=== PATIENT | male | born 1960 | race Caucasian/White ===

== ENCOUNTER 2017-01-19 09:58 | Emergency (ER) | payer SELFPAY ==
[2017-01-19 10:13] VITALS: BMI 24.3
[2017-01-19] MEDS ORDERED: NS 1000 ML 1,000 ML IV ONE (10:42)
[2017-01-19] MEDS ORDERED: ZOFRAN INJ 4 MG VIAL IVP ONE (10:43)
[2017-01-19] MEDS ORDERED: REGLAN INJ 10 MG VIAL IVP STA (10:43)
--- NOTE | 2017-01-19 10:49 | DR.GENAD ---
HPI - PCP Primary Care Physician: shellie - Complaint/Symptoms Chief Complaint Doctors Comments: Patient complains of nausea and vomiting for the past two days getting worst today with body aches and lower abdominal pain with cold, cough, SOB and dysuria. Patient states he is a patient of Dr. Montano and is taking Hydrocodone 10mg; and a high blood pressure medicine with a muscle spasm pill that he takes at times. States he had a normal bowel movement today. Chief Complaint:: 'throwing up for two days" - Nurses notes reviewed Nurses Notes Review: Yes - Source History Provided: Patient - Mode of Arrival Mode of Arrival: Ambulatory - Timing Onset of Chief Complaint: 01/18/17 Came on: Gradually - Duration Duration: Constant How lon Duration: Days - Location Location: lower abdominal pain - Severity Severity: Moderate - Modifying Factors Worsens:: nothing Improves:: nothing PMH - PMH Past Medical History: Yes Past Medical History: Hypertension Past Surgical History: No - Family History History of Family Medical Conditions: Yes Family Medical History: SD - Social History Does patient currently use any type of tobacco product: Yes Have you used tobacco products in the last 12 months: Yes Type of Tobacco Use: Cigarettes How many years tobacco product used: 1 Does any household member use tobacco: No Alcohol Use: None Do you use any recreational Drugs:: No Lives With: Family Lives Where: Home - infectious screening In the last 2 months have you had wt loss of >10#?: NO Have you had fever, night sweats or hemotysis?: No Have you traveled outside the country in the last 6 months?: No Isolation: Standard ROS - Review of Systems Constitutional: No Symptoms Reported, Loss of Appetite Eyes: No Symptoms Reported. negative: See HPI, Eye Pain, Blurred Vision, Tearing, Discharge, Photophobia, Diplopia, Other ENTM: No Symptoms Reported Respiratoy: No Symptoms Reported, Short of Breath. negative: See HPI, Productive Cough, Non-Productive Cough, Moist Cough, Dry Cough, Hacking Cough, Barking Cough, Brassy Cough, Orthopnea, Stridor, Wheezing, Hemoptysis, Other Cardiovascular: No Symptoms Reported. negative: See HPI, Chest Pain, Edema, Palpitations, Syncope, Cyanosis, Skin Mottling, Other Gastrointestinal/Abdominal: No Symptoms Reported, Abdominal Pain, Nausea, Vomiting Genitourinary: No Symptoms Reported. negative: See HPI, Discharge, Dysuria, Frequency, Hematuria, Pain, Bleeding, Other Neurological: No Symptoms Reported, Anxiety, Emotional Problems Musculoskeletal: No Symptoms Reported Integumentary: No Symptoms Reported Hematologic/Lymphatic: No Symptoms Reported. negative: See HPI, Anemia, Blood Clots, Easy Bleeding, Easy Bruising, Swollen Glands, Lymphadenopathy, Other Endocrine: No Symptoms Reported Psychiatric: No Symptoms Reported PE - Vital Signs Vitals: Temperature 98 F Pulse Rate 68 Respiratory Rate 18 Blood Pressure [Left Arm] 159/99 Blood Pressure 184/108 O2 Sat by Pulse Oximetry 100 - General Limitations: No Limitations General Appearance: Alert, Anxious, In Distress (mild) - Head Head Exam: Normal Inspection, Atraumatic, Normocephalic - Eyes Eye exam: Normal Appearance, PERRL, EOMI. negative: Scleral Icterus, Conjunctival Injection, Nystagmus, Miosis, Mydrasis, Periorbital Swelling, Periorbital Tenderness, Other - ENT ENT Exam: Normal Exam, Normal Oropharynx, Normal External Ear Exam, Mucous Membranes Moist, TM's Normal Bilaterally External Ear Exam: Normal External Inspection TM/Canal Exam: Bilateral Normal Nose Exam: Normal Nose Exam Mouth Exam: Normal Inspection. negative: Drooling, Trismus, Lip Swelling, Tongue Elevation, Tongue Swelling, Laceration, Other Throat Exam: Normal Inspection. negative: Tonsillar Erythema, Tonsillomegaly, Tonsillar Exudate, R Peritonsillar Mass, L Peritonsillar Mass, Muffled Voice, Other - Neck Neck Exam: Normal Inspection, Full ROM, Trachea Midline. negative: Tenderness, Meningismus, Lymphadenopathy, Thyromegaly, Other - Chest Chest Inspection: Normal Inspection, Symmetric Chest Wall Rise. negative: Tenderness, Rash, Abscess, Other - Respiratory Respiratory Exam: Normal Lung Sounds Bilat Respiratory Exam: Bilateral Clear to Auscultation - Cardiovascular Cardiovascular Exam: Regular Rate, Normal Rhythm, Normal Heart Sounds. negative : Bradycardia, Tachycardia, Irregular Rhythm, Systolic Murmur, Diastolic Murmur , Rubs, Gallop, Clicks, JVD, +S1, +S2, +S3, +S4, Other - Abdominal Exam Abdominal Exam: Normal Inspection, Normal Bowel Sounds, Soft. negative: Distention, Tenderness, Guarding, Rebound, Rigidity, Dimnished Bowel Sounds, Hyperactive Bowel Sounds, Hypoactive Bowel Sounds, Organomegaly, Trauma, Incision, Ascites, Mass, Bruit, Pulsatile Mass, Hernia, Other Abdominal Tenderness: negative: RUQ, RLQ, LUQ, LLQ, Epigastrium, Suprapubic, Diffuse, Mild, Moderate, Severe, Other - Extremities Extremities Exam: Normal Inspection, Full ROM, Normal Capillary Refill. negative: Tenderness, Edema, Joint Swelling, Calf Tenderness, Other - Back Back Exam: Normal Inspection, Full ROM - Neurologic Neurological Exam: Alert, Oriented X3, CN II-XII Intact, Reflexes Normal. negative: Normal Gait (gait not tested) - Psychiatric Psychiatric Exam: Normal Affect, Normal Mood - Skin Skin Exam: Warm, Dry, Intact, Normal Color ROR - Labs Reviewed Laboratory Results Reviewed?: Yes (all labs and x-ray results reviewed and discussed with patient) Result Diagrams: 01/19/17 11:08 01/19/17 11:08 Laboratory: WBC 11.0 X10^3/uL (3.6-10.0) H 01/19/17 11:08 RBC 5.79 X10^6/uL (4.7-6.0) 01/19/17 11:08 Hgb 18.1 g/dL (13.5-18.0) H 01/19/17 11:08 Hct 52.3 % (42.0-54.0) 01/19/17 11:08 MCV 90.2 fL (80.0-100.0) 01/19/17 11:08 MCH 31.2 pg (27.0-34.0) 01/19/17 11:08 MCHC 34.6 g/dL (33.0-35.0) 01/19/17 11:08 RDW 12.8 % (11.6-16.5) 01/19/17 11:08 Plt Count 251 X10^3/uL (150.0-450.0) 01/19/17 11:08 MPV 7.4 fL (7.4-11.0) 01/19/17 11:08 Neut % 84.1 % (42.0-75.0) H 01/19/17 11:08 Lymph % 9.2 % (21.0-51.0) L 01/19/17 11:08 Prentiss % 5.2 % (0.0-13.0) 01/19/17 11:08 Eos % 1.1 % (0.9-2.9) 01/19/17 11:08 Baso % 0.4 % (0.2-1.0) 01/19/17 11:08 Neut # 9.3 x10^3/uL (2.2-4.8) H 01/19/17 11:08 Lymph # 1.0 X10^3/uL (1.3-2.9) L 01/19/17 11:08 Prentiss # 0.6 x10^3/uL (0.3-0.8) 01/19/17 11:08 Eos # 0.1 x10^3/uL (0.0-0.2) 01/19/17 11:08 Baso # 0.0 X10^3/uL (0.0-0.1) 01/19/17 11:08 Absolute Nucleated RBC 0.0 /100WBC 01/19/17 11:08 Sodium 139 mmol/L (136-145) 01/19/17 11:08 Corrected Sodium TNP 01/19/17 11:08 Potassium 4.2 mmol/L (3.5-5.1) 01/19/17 11:08 Chloride 101 mmol/L (98-107) 01/19/17 11:08 Carbon Dioxide 26.2 mmol/L (21-32) 01/19/17 11:08 BUN 14 mg/dL (7-18) 01/19/17 11:08 Creatinine 1.31 mg/dL (0.70-1.30) H 01/19/17 11:08 Est GFR (MDRD) Af Amer > 60 (>60) 01/19/17 11:08 Est GFR (MDRD) Non-Af > 60 (>60) 01/19/17 11:08 Glucose 98 mg/dL (65-99) 01/19/17 11:08 Calcium 10.1 mg/dL (8.5-10.1) 01/19/17 11:08 Corrected Calcium TNP 01/19/17 11:08 Total Bilirubin 0.70 mg/dL (0.2-1.0) 01/19/17 11:08 AST 22 Units/L (15-37) 01/19/17 11:08 ALT 27 Units/L (12-78) 01/19/17 11:08 Alkaline Phosphatase 132 Units/L (46-116) H 01/19/17 11:08 Total Protein 8.2 g/dL (6.4-8.2) 01/19/17 11:08 Albumin 4.5 g/dL (3.4-5.0) 01/19/17 11:08 Globulin 3.7 g/dL (2.5-4.5) 01/19/17 11:08 Albumin/Globulin Ratio 1.2 Ratio (1.1-2.1) 01/19/17 11:08 Amylase 117 Units/L (25-115) H 01/19/17 11:08 Lipase 186 Units/L (73-393) 01/19/17 11:08 - Diagnosis Discharge Problem: persistent nausea and vomiting, Abdominal pain, Essential hypertension - Discharge Plan Disposition: 07 AGAINST MEDICAL ADVICE Condition: Stable - Follow ups/Referrals Follow ups/Referrals: [place] MONTANO [Primary Care Provider] - 3 days - Instructions
[2017-01-19 11:21] LABS: BASOPHILS % (AUTO) 0.4 % (0.2-1.0); EOSINOPHILS # (AUTO) 0.1 x10^3/uL (0.0-0.2); EOSINOPHILS % (AUTO) 1.1 % (0.9-2.9); HEMATOCRIT 52.3 % (42.0-54.0); HEMOGLOBIN 18.1 g/dL (13.5-18.0); LYMPHOCYTES % (AUTO) 9.2 % (21.0-51.0); MEAN CORPUSCULAR HEMOGLOBIN 31.2 pg (27.0-34.0); MEAN CORPUSCULAR HGB CONC 34.6 g/dL (33.0-35.0); MEAN CORPUSCULAR VOLUME 90.2 fL (80.0-100.0); MEAN PLATELET VOLUME 7.4 fL (7.4-11.0); MONOCYTES # (AUTO) 0.6 x10^3/uL (0.3-0.8); MONOCYTES % (AUTO) 5.2 % (0.0-13.0); NEUTROPHILS # (AUTO) 9.3 x10^3/uL (2.2-4.8); NEUTROPHILS % (AUTO) 84.1 % (42.0-75.0); PLATELET COUNT 251 X10^3/uL (150.0-450.0); RED BLOOD COUNT 5.79 X10^6/uL (4.7-6.0); RED CELL DISTRIBUTION WIDTH 12.8 % (11.6-16.5)
[2017-01-19 11:27] LABS: ALANINE AMINOTRANSFERASE 27 Units/L (12-78); ALBUMIN 4.5 g/dL (3.4-5.0); ALKALINE PHOSPHATASE 132 Units/L (46-116); AMYLASE 117 Units/L (25-115); ASPARTATE AMINO TRANSFERASE 22 Units/L (15-37); BLOOD UREA NITROGEN 14 mg/dL (7-18); CALCIUM 10.1 mg/dL (8.5-10.1); CARBON DIOXIDE 26.2 mmol/L (21-32); CHLORIDE 101 mmol/L (98-107); CREATININE 1.31 mg/dL (0.70-1.30); LIPASE 186 Units/L (73-393); SODIUM 139 mmol/L (136-145); TOTAL PROTEIN 8.2 g/dL (6.4-8.2); eGFR BLACK RACES > 60 (>60); eGFR NON BLACK RACES > 60 (>60)
[2017-01-19 11:33] VITALS: BP 184/108
[2017-01-19] MEDS ORDERED: PHENERGAN INJ 25 MG IM ONE (11:36)
--- NOTE | 2017-01-19 12:20 | CT ---
HISTORY: Subacute abdominal pain with nausea and vomiting Study: CT abdomen and pelvis without contrast Comparison: None Technique: Multiple axial, coronal, and sagittal CT images of the abdomen and pelvis were reviewed wi thout contrast. AEC was utilized. Findings: There is rounded fluid filling the right inguinal canal which could reflect fluid or perhaps an undes cended testicle. No herniated bowel loops are seen. Clinical correlation recommended. If further imag ing evaluation is warranted, ultrasound would be recommended. The lung bases are clear. There are deg enerative changes within the spine and hips. No destructive osseous lesions are seen. The noncontrast appearance of the solid organs is unremarkable other than an incidental 9 mm nonobstructive left felicity al caliceal stone. The appendix is normal. IMPRESSION: No definite acute finding within the abdomen or pelvis. Nonobstructive left nephrolithiasis. Soft tissue density versus fluid filling the right inguinal canal as above. Reported By:
== END 2017-01-19 12:00 | disposition left against medical advice (07) ==
LOC: ER 10:18
DX: R11.2 Nausea with vomiting, unspecified (principal); R10.84 Generalized abdominal pain; I10 Essential (primary) hypertension
CPT/HCPCS: 36415; 74176; 80053; 82150; 83690; 85025; 96365; 96374; 96375; 99283; A4216; A4222

== ENCOUNTER 2017-02-02 11:56 | Emergency (ER) | payer MEDICAID ==
--- NOTE | 2017-02-02 12:06 | DR.GENAD ---
HPI - Complaint/Symptoms Chief Complaint Doctors Comments: patient presents with complaint of stomach pain, nausea and vomiting since this mornig. He denies fever or diarrhea. He was diagnosed with a 9mm left nonobstructive nephrolithiasis on 01/19/17. He admits to intermittent vomiting since last seen. His CT scan also revealed DJD changes within the spine and hips. PMH - PMH Past Medical History: Hypertension Past Surgical History: No - Family History Family Medical History: ID - Social History Do you use any recreational Drugs:: No ROS - Review of Systems Constitutional: negative: Diaphoresis Eyes: No Symptoms Reported ENTM: No Symptoms Reported Respiratoy: No Symptoms Reported Cardiovascular: No Symptoms Reported Gastrointestinal/Abdominal: No Symptoms Reported Genitourinary: No Symptoms Reported Neurological: No Symptoms Reported Musculoskeletal: No Symptoms Reported Integumentary: No Symptoms Reported Hematologic/Lymphatic: No Symptoms Reported Endocrine: No Symptoms Reported Psychiatric: No Symptoms Reported All Other Systems: Reviewed and Negative PE - Vital Signs Vitals: Temperature 98.3 F Pulse Rate 105 Respiratory Rate 18 Blood Pressure [Left Arm] 159/99 Blood Pressure 213/117 O2 Sat by Pulse Oximetry 100 - General Limitations: No Limitations General Appearance: Alert, In No Apparent Distress - Head Head Exam: Normal Inspection, Atraumatic - Eyes Eye exam: Normal Appearance, PERRL, EOMI - ENT ENT Exam: Normal Exam External Ear Exam: Normal External Inspection TM/Canal Exam: Bilateral Normal Nose Exam: Normal Nose Exam Mouth Exam: Normal Inspection Throat Exam: Normal Inspection - Neck Neck Exam: Normal Inspection - Chest Chest Inspection: Normal Inspection, Symmetric Chest Wall Rise - Respiratory Respiratory Exam: Normal Lung Sounds Bilat Respiratory Exam: Bilateral Clear to Auscultation - Cardiovascular Cardiovascular Exam: Regular Rate, Normal Rhythm - Abdominal Exam Abdominal Exam: Normal Inspection, Normal Bowel Sounds Abdominal Tenderness: negative: RUQ, RLQ, LUQ, LLQ, Epigastrium, Suprapubic, Diffuse, Mild, Moderate, Severe, Other - Extremities Extremities Exam: Normal Inspection, Full ROM - Back Back Exam: Normal Inspection - Neurologic Neurological Exam: Alert, Oriented X3, CN II-XII Intact - Psychiatric Psychiatric Exam: Normal Affect - Skin Skin Exam: Warm, Dry, Intact Course - Reevaluation 1st: Improved - Education/Counseling Educated On: Treatment, Diagnosis, Prognosis, Needs for Follow Up ROR - Labs Reviewed Result Diagrams: 02/02/17 12:20 02/02/17 12:20 Laboratory: WBC 9.0 X10^3/uL (3.6-10.0) 02/02/17 12:20 RBC 5.95 X10^6/uL (4.7-6.0) 02/02/17 12:20 Hgb 18.6 g/dL (13.5-18.0) H 02/02/17 12:20 Hct 53.7 % (42.0-54.0) 02/02/17 12:20 MCV 90.2 fL (80.0-100.0) 02/02/17 12:20 MCH 31.3 pg (27.0-34.0) 02/02/17 12:20 MCHC 34.7 g/dL (33.0-35.0) 02/02/17 12:20 RDW 13.2 % (11.6-16.5) 02/02/17 12:20 Plt Count 275 X10^3/uL (150.0-450.0) 02/02/17 12:20 MPV 7.8 fL (7.4-11.0) 02/02/17 12:20 Neut % 73.4 % (42.0-75.0) 02/02/17 12:20 Lymph % 16.3 % (21.0-51.0) L 02/02/17 12:20 [place] % 8.9 % (0.0-13.0) 02/02/17 12:20 Eos % 0.7 % (0.9-2.9) L 02/02/17 12:20 Baso % 0.7 % (0.2-1.0) 02/02/17 12:20 Neut # 6.6 x10^3/uL (2.2-4.8) H 02/02/17 12:20 Lymph # 1.5 X10^3/uL (1.3-2.9) 02/02/17 12:20 [place] # 0.8 x10^3/uL (0.3-0.8) 02/02/17 12:20 Eos # 0.1 x10^3/uL (0.0-0.2) 02/02/17 12:20 Baso # 0.1 X10^3/uL (0.0-0.1) 02/02/17 12:20 Absolute Nucleated RBC 0.0 /100WBC 02/02/17 12:20 Sodium 140 mmol/L (136-145) 02/02/17 12:20 Corrected Sodium 140 mmol/L (136-145) 02/02/17 12:20 Potassium 3.4 mmol/L (3.5-5.1) L 02/02/17 12:20 Chloride 99 mmol/L (98-107) 02/02/17 12:20 Carbon Dioxide 27.8 mmol/L (21-32) 02/02/17 12:20 BUN 22 mg/dL (7-18) H 02/02/17 12:20 Creatinine 1.60 mg/dL (0.70-1.30) H 02/02/17 12:20 Est GFR (MDRD) Af Amer 58 (>60) L 02/02/17 12:20 Est GFR (MDRD) Non-Af 48 (>60) L 02/02/17 12:20 Glucose 117 mg/dL (65-99) H 02/02/17 12:20 Calcium 10.3 mg/dL (8.5-10.1) H 02/02/17 12:20 - XRAY XRAY Interpreted by: Radiologist (See results of 01/19/17) - Diagnosis Discharge Problem: Nonobstructive Nephrolithiasis Osteoarthritis Qualifiers: Osteoarthritis location: unspecified site Osteoarthritis type: unspecified Qualified Code(s): M19.90 - Unspecified osteoarthritis, unspecified site - Discharge Plan Condition: Stable - Follow ups/Referrals Follow ups/Referrals: NFD,None [Primary Care Provider] - 3 days - Instructions
[2017-02-02] MEDS ORDERED: PHENERGAN INJ 25 MG IV ONE (12:12)
[2017-02-02 12:17] VITALS: BP 213/117; BMI 24.3
[2017-02-02] MEDS ORDERED: PHENERGAN INJ 25 MG ONE (12:18)
[2017-02-02] MEDS ORDERED: NS 1000 ML 1,000 ML ONE (12:20)
[2017-02-02 12:33] LABS: BASOPHILS # (AUTO) 0.1 X10^3/uL (0.0-0.1); BASOPHILS % (AUTO) 0.7 % (0.2-1.0); EOSINOPHILS # (AUTO) 0.1 x10^3/uL (0.0-0.2); EOSINOPHILS % (AUTO) 0.7 % (0.9-2.9); HEMATOCRIT 53.7 % (42.0-54.0); HEMOGLOBIN 18.6 g/dL (13.5-18.0); LYMPHOCYTES # (AUTO) 1.5 X10^3/uL (1.3-2.9); LYMPHOCYTES % (AUTO) 16.3 % (21.0-51.0); MEAN CORPUSCULAR HEMOGLOBIN 31.3 pg (27.0-34.0); MEAN CORPUSCULAR HGB CONC 34.7 g/dL (33.0-35.0); MEAN CORPUSCULAR VOLUME 90.2 fL (80.0-100.0); MEAN PLATELET VOLUME 7.8 fL (7.4-11.0); MONOCYTES # (AUTO) 0.8 x10^3/uL (0.3-0.8); MONOCYTES % (AUTO) 8.9 % (0.0-13.0); NEUTROPHILS # (AUTO) 6.6 x10^3/uL (2.2-4.8); NEUTROPHILS % (AUTO) 73.4 % (42.0-75.0); PLATELET COUNT 275 X10^3/uL (150.0-450.0); RED BLOOD COUNT 5.95 X10^6/uL (4.7-6.0); RED CELL DISTRIBUTION WIDTH 13.2 % (11.6-16.5)
[2017-02-02] MEDS ORDERED: TORADOL 30 MG VIAL ONE (12:51)
[2017-02-02] MEDS ORDERED: TORADOL 30 MG VIAL IVP ONE (12:51)
[2017-02-02] MEDS ORDERED: DEMEROL INJ IVP ONE (12:52)
[2017-02-02 12:53] LABS: BLOOD UREA NITROGEN 22 mg/dL (7-18); CALCIUM 10.3 mg/dL (8.5-10.1); CARBON DIOXIDE 27.8 mmol/L (21-32); CHLORIDE 99 mmol/L (98-107); COR NA(FOR HYPERGLY) 140 mmol/L (136-145); SODIUM 140 mmol/L (136-145); eGFR BLACK RACES 58 (>60); eGFR NON BLACK RACES 48 (>60)
[2017-02-02] MEDS ORDERED: ZOFRAN INJ 4 MG VIAL IVP ONE (12:58)
[2017-02-02] MEDS ORDERED: DEMEROL INJ ONE (13:00)
[2017-02-02] MEDS ORDERED: ZOFRAN INJ 4 MG VIAL ONE (13:00)
[2017-02-02] MEDS ORDERED: NS 1000 ML 1,000 ML IV SCH (13:00)
[2017-02-02 13:16] LABS: ALANINE AMINOTRANSFERASE 43 Units/L (12-78); ALBUMIN 4.8 g/dL (3.4-5.0); ALKALINE PHOSPHATASE 126 Units/L (46-116); ASPARTATE AMINO TRANSFERASE 25 Units/L (15-37); TOTAL PROTEIN 8.5 g/dL (6.4-8.2)
== END 2017-02-02 13:30 | disposition home or self-care (01) ==
LOC: ER 11:56
DX: N20.0 Calculus of kidney (principal); M19.90 Unspecified osteoarthritis, unspecified site
CPT/HCPCS: 36415; 80053; 85025; 86140; 96365; 96374; 96375; 99283; J1885; J2175; J2405; J2550

== ENCOUNTER 2017-02-03 08:54 | Emergency (ER) | payer MEDICAID ==
[2017-02-03 08:58] VITALS: BMI 24.4
[2017-02-03 09:00] VITALS: BP 203/125
--- NOTE | 2017-02-03 09:03 | DR.GENAD ---
HPI - PCP Primary Care Physician: shellie SEBASTIAN Comment HPI Comment: HISTORY BELOW - Complaint/Symptoms Chief Complaint Doctors Comments: ABDOMINAL AND LOWER BACK PAIN. SEEN IN ED YESTERDAY FOR SAME. NOT BETTER. 9MM LEFT CALICEAL CALCULI SEEN 01/19/2017. NO FEVER. N/V PRESENT. Chief Complaint:: pt came to our er yesterday with kidney stone and went home and woke up this morning hurting again. - Nurses notes reviewed Nurses Notes Review: Yes - Source History Provided: Patient - Mode of Arrival Mode of Arrival: Ambulatory - Timing Onset of Chief Complaint: 02/03/17 Came on: Suddenly - Duration Duration: Constant Duration: Days - Severity Severity: Moderate PMH - PMH Past Medical History: Yes Past Medical History: Hypertension Past Surgical History: No Surgical History: Other - Family History History of Family Medical Conditions: Yes Family Medical History: SD - Social History Does patient currently use any type of tobacco product: Yes Have you used tobacco products in the last 12 months: Yes Type of Tobacco Use: Cigarettes How many years tobacco product used: 2 Does any household member use tobacco: No Alcohol Use: None Do you use any recreational Drugs:: No Lives With: Family Lives Where: Home - infectious screening In the last 2 months have you had wt loss of >10#?: NO Have you had fever, night sweats or hemotysis?: No Have you traveled outside the country in the last 6 months?: No Isolation: Standard ROS - Review of Systems Constitutional: No Symptoms Reported Eyes: No Symptoms Reported ENTM: No Symptoms Reported Respiratoy: No Symptoms Reported Cardiovascular: No Symptoms Reported Gastrointestinal/Abdominal: No Symptoms Reported Genitourinary: No Symptoms Reported Neurological: No Symptoms Reported Musculoskeletal: No Symptoms Reported Integumentary: No Symptoms Reported Hematologic/Lymphatic: No Symptoms Reported Endocrine: No Symptoms Reported All Other Systems: Reviewed and Negative PE - Vital Signs Vitals: Temperature 98.7 F Pulse Rate 110 Respiratory Rate 18 Blood Pressure [Left Arm] 159/99 Blood Pressure 203/125 O2 Sat by Pulse Oximetry 100 - General Limitations: No Limitations General Appearance: Alert - Head Head Exam: Normal Inspection - Eyes Eye exam: Normal Appearance - ENT ENT Exam: Normal External Ear Exam External Ear Exam: Normal External Inspection TM/Canal Exam: Bilateral Normal Nose Exam: Normal Nose Exam Throat Exam: Normal Inspection - Neck Neck Exam: Normal Inspection - Chest Chest Inspection: Symmetric Chest Wall Rise - Respiratory Respiratory Exam: Normal Lung Sounds Bilat Respiratory Exam: Bilateral Clear to Auscultation - Cardiovascular Cardiovascular Exam: Regular Rate, Normal Rhythm, Normal Heart Sounds - Abdominal Exam Abdominal Exam: Normal Bowel Sounds, Soft, Tenderness Abdominal Tenderness: Diffuse, Moderate - Extremities Extremities Exam: Normal Inspection - Back Back Exam: (L) CVA Tenderness - Neurologic Neurological Exam: Alert, Oriented X3 - Psychiatric Psychiatric Exam: Normal Affect, Normal Mood - Skin Skin Exam: Normal Color MDM - Differential Diagnosis Differential Diagnosis: ABDOMINAL PAIN, KIDNEY STONE, UTI Course - Treatment Treatment: SEE ORDERS. IV FLUIDS NS AND IV TORADOL, ZOFRAN, PHENERGAN AND DEMOROL IN ED. - Consultation Consultation Comments: DISCUSS PATIENT WITH DR. VELARDE, [facility]. HE WANT PATIENT SENT TO THE ED AND HE WILL SEE PATIENT. - Education/Counseling Education/Counseling: Patient ROR - Labs Reviewed Laboratory Results Reviewed?: Yes Result Diagrams: 02/03/17 09:30 02/03/17 09:30 Laboratory: WBC 9.0 X10^3/uL (3.6-10.0) 02/03/17 09:30 RBC 5.54 X10^6/uL (4.7-6.0) 02/03/17 09:30 Hgb 17.3 g/dL (13.5-18.0) 02/03/17 09:30 Hct 50.1 % (42.0-54.0) 02/03/17 09:30 MCV 90.3 fL (80.0-100.0) 02/03/17 09:30 MCH 31.3 pg (27.0-34.0) 02/03/17 09:30 MCHC 34.6 g/dL (33.0-35.0) 02/03/17 09:30 RDW 13.1 % (11.6-16.5) 02/03/17 09:30 Plt Count 224 X10^3/uL (150.0-450.0) 02/03/17 09:30 MPV 7.8 fL (7.4-11.0) 02/03/17 09:30 Neut % 81.0 % (42.0-75.0) H 02/03/17 09:30 Lymph % 11.7 % (21.0-51.0) L 02/03/17 09:30 [place] % 6.5 % (0.0-13.0) 02/03/17 09:30 Eos % 0.5 % (0.9-2.9) L 02/03/17 09:30 Baso % 0.3 % (0.2-1.0) 02/03/17 09:30 Neut # 7.3 x10^3/uL (2.2-4.8) H 02/03/17 09:30 Lymph # 1.1 X10^3/uL (1.3-2.9) L 02/03/17 09:30 [place] # 0.6 x10^3/uL (0.3-0.8) 02/03/17 09:30 Eos # 0.0 x10^3/uL (0.0-0.2) 02/03/17 09:30 Baso # 0.0 X10^3/uL (0.0-0.1) 02/03/17 09:30 Absolute Nucleated RBC 0.1 /100WBC 02/03/17 09:30 Sodium 138 mmol/L (136-145) 02/03/17 09:30 Corrected Sodium TNP 02/03/17 09:30 Potassium 3.6 mmol/L (3.5-5.1) 02/03/17 09:30 Chloride 102 mmol/L (98-107) 02/03/17 09:30 Carbon Dioxide 25.2 mmol/L (21-32) 02/03/17 09:30 BUN 24 mg/dL (7-18) H 02/03/17 09:30 Creatinine 1.54 mg/dL (0.70-1.30) H 02/03/17 09:30 Est GFR (MDRD) Af Amer 60 (>60) 02/03/17 09:30 Est GFR (MDRD) Non-Af 50 (>60) L 02/03/17 09:30 Glucose 104 mg/dL (65-99) H 02/03/17 09:30 Calcium 9.8 mg/dL (8.5-10.1) 02/03/17 09:30 Corrected Calcium TNP 02/03/17 09:30 Total Bilirubin 1.00 mg/dL (0.2-1.0) 02/03/17 09:30 AST 22 Units/L (15-37) 02/03/17 09:30 ALT 38 Units/L (12-78) 02/03/17 09:30 Alkaline Phosphatase 111 Units/L (46-116) 02/03/17 09:30 Total Protein 7.7 g/dL (6.4-8.2) 02/03/17 09:30 Albumin 4.3 g/dL (3.4-5.0) 02/03/17 09:30 Globulin 3.4 g/dL (2.5-4.5) 02/03/17 09:30 Albumin/Globulin Ratio 1.3 Ratio (1.1-2.1) 02/03/17 09:30 Amylase 81 Units/L (25-115) 02/03/17 09:30 Lipase 190 Units/L (73-393) 02/03/17 09:30 Specimen Type Clean catch urine 02/03/17 09:30 Urine Color Bloody (YELLOW) 02/03/17 09:30 Urine Appearance Cloudy (CLEAR) 02/03/17 09:30 Urine pH 5.0 (5.0 - 8.0) 02/03/17 09:30 Ur Specific [place] 1.025 (1.000-1.030) 02/03/17 09:30 Urine Protein 3+ (NEGATIVE) 02/03/17 09:30 Urine Glucose (UA) Negative (NEGATIVE) 02/03/17 09:30 Urine Ketones 1+ (NEGATIVE) 02/03/17 09:30 Urine Occult Blood 5+ (NEGATIVE) 02/03/17 09:30 Urine Nitrite Positive (NEGATIVE) 02/03/17 09:30 Urine Bilirubin 1+ (NEGATIVE) 02/03/17 09:30 Urine Urobilinogen 1+ (NORMAL) 02/03/17 09:30 Ur Leukocyte Esterase 1+ (NEGATIVE) 02/03/17 09:30 Urine RBC Tntc /HPF (NEGATIVE) 02/03/17 09:30 Urine WBC 2 - 8 /HPF (NEGATIVE) 02/03/17 09:30 Ur Squamous Epith Cells Few /HPF (NEGATIVE) 02/03/17 09:30 Urine Bacteria 1+ /HPF (NEGATIVE) 02/03/17 09:30 Ur Culture Indicated? Yes/culture set up 02/03/17 09:30 - XRAY XRAY Interpreted by: Radiologist XRAY Findings: REPORT DISCUSS WITH PATIENT - Diagnosis Discharge Problem: Renal calculus, left, Hydronephrosis of left kidney, Abdominal pain UTI (urinary tract infection) Qualifiers: Urinary tract infection type: site unspecified Hematuria presence: with hematuria Qualified Code(s): N39.0 - Urinary tract infection, site not specified - Discharge Plan Condition: Stable - Follow ups/Referrals Follow ups/Referrals: [place] MONTANO [Primary Care Provider] - 3 days ENRIQUE VELARDE [REFERRING] - 02/03/17 - Instructions Instructions: Kidney Stones, [id number], Abdominal Pain, Adult, [id number] , Urinary Tract Infection, Adult Additional Instructions: TO [facility] EMERGENCY ROOM TO SEE THE UROLOGIST.
[2017-02-03] MEDS ORDERED: NS 1000 ML 1,000 ML IV ONE (09:04)
[2017-02-03] MEDS ORDERED: ZOFRAN INJ 4 MG VIAL IVP ONE (09:04)
[2017-02-03] MEDS ORDERED: TORADOL 30 MG VIAL IVP ONE (09:04)
[2017-02-03] MEDS ORDERED: TORADOL 30 MG VIAL ONE (09:11)
[2017-02-03] MEDS ORDERED: NS 1000 ML 1,000 ML ONE ×2 (09:11→11:32)
[2017-02-03] MEDS ORDERED: ZOFRAN INJ 4 MG VIAL ONE (09:11)
[2017-02-03] MEDS ORDERED: PHENERGAN INJ 25 MG ONE ×2 (09:26→09:44)
[2017-02-03 09:45] LABS: BASOPHILS % (AUTO) 0.3 % (0.2-1.0); EOSINOPHILS % (AUTO) 0.5 % (0.9-2.9); HEMATOCRIT 50.1 % (42.0-54.0); HEMOGLOBIN 17.3 g/dL (13.5-18.0); LYMPHOCYTES # (AUTO) 1.1 X10^3/uL (1.3-2.9); LYMPHOCYTES % (AUTO) 11.7 % (21.0-51.0); MEAN CORPUSCULAR HEMOGLOBIN 31.3 pg (27.0-34.0); MEAN CORPUSCULAR HGB CONC 34.6 g/dL (33.0-35.0); MEAN CORPUSCULAR VOLUME 90.3 fL (80.0-100.0); MEAN PLATELET VOLUME 7.8 fL (7.4-11.0); MONOCYTES # (AUTO) 0.6 x10^3/uL (0.3-0.8); MONOCYTES % (AUTO) 6.5 % (0.0-13.0); NEUTROPHILS # (AUTO) 7.3 x10^3/uL (2.2-4.8); PLATELET COUNT 224 X10^3/uL (150.0-450.0); RED BLOOD COUNT 5.54 X10^6/uL (4.7-6.0); RED CELL DISTRIBUTION WIDTH 13.1 % (11.6-16.5)
[2017-02-03] MEDS: PHENERGAN INJ 25 MG IV PRN ×2 (09:48→09:49)
[2017-02-03] MEDS ORDERED: PHENERGAN INJ 25 MG IVP ONE (09:49)
[2017-02-03 09:51] LABS: BILIRUBIN,URINE 1+ (NEGATIVE); BLOOD/HEMOGLOBIN,URINE 5+ (NEGATIVE); GLUCOSE, URINE NEGATIVE (NEGATIVE); KETONES,URINE 1+ (NEGATIVE); LEUKOCYTE ESTERASE ,URINE 1+ (NEGATIVE); NITRITES,URINE POSITIVE (NEGATIVE); PROTEIN,URINE 3+ (NEGATIVE); UROBILINOGEN,URINE 1+ (NORMAL)
[2017-02-03 09:54] LABS: APPEARANCE,URINE CLOUDY (CLEAR); COLOR,URINE BLOODY (YELLOW)
[2017-02-03 09:57] LABS: RBC,URINE TNTC /HPF (NEGATIVE)
[2017-02-03 09:58] LABS: BACTERIA,URINE 1+ /HPF (NEGATIVE); SQUAMOUS EPITHELIAL CELL,UR FEW /HPF (NEGATIVE)
[2017-02-03 10:00] LABS: BLOOD UREA NITROGEN 24 mg/dL (7-18); CALCIUM 9.8 mg/dL (8.5-10.1); CARBON DIOXIDE 25.2 mmol/L (21-32); CHLORIDE 102 mmol/L (98-107); CREATININE 1.54 mg/dL (0.70-1.30); SODIUM 138 mmol/L (136-145); eGFR BLACK RACES 60 (>60); eGFR NON BLACK RACES 50 (>60)
[2017-02-03 10:13] LABS: ALANINE AMINOTRANSFERASE 38 Units/L (12-78); ALBUMIN 4.3 g/dL (3.4-5.0); ALKALINE PHOSPHATASE 111 Units/L (46-116); ASPARTATE AMINO TRANSFERASE 22 Units/L (15-37); TOTAL PROTEIN 7.7 g/dL (6.4-8.2)
[2017-02-03 10:14] LABS: AMYLASE 81 Units/L (25-115); LIPASE 190 Units/L (73-393)
--- NOTE | 2017-02-03 11:09 | CT ---
HISTORY: Pain, kidney stone Study: CT abdomen and pelvis without contrast Comparison: 01/19/2017 Technique: Multiple axial images of the abdomen and pelvis were obtained without IV contrast. Dose reduction t echniques including Automated Exposure Control (AEC) and adjustment of mA and kV were utilized. Findings: Please note evaluation is limited without use of IV contrast. The visualized lung bases are clear. The liver, spleen, pancreas, and adrenal glands are unremarkabl e in their unenhanced CT appearance. The gallbladder is normal. There is left-sided hydronephrosis du e to an 8 mm stone in the distal left ureter. No free intraperitoneal air. No evidence of intestinal obstruction or inflammation. Normal appendix. No free fluid is identified. The soft tissues and osseous structures are unremarkable. The vascular structures are unremarkable. N o pathologically enlarged lymph nodes are identified. Normal urinary bladder. IMPRESSION: 1. Left-sided hydronephrosis due to an 8 mm stone in the distal left ureter. Reported By:
[2017-02-03] MEDS ORDERED: MORPHINE SULFATE INJ 4 MG IVP ONE (11:29)
[2017-02-03] MEDS ORDERED: DEMEROL INJ IVP ONE (11:32)
[2017-02-03] MEDS ORDERED: DEMEROL INJ ONE (11:32)
[2017-02-03] MEDS ORDERED: NS 1000 ML 1,000 ML IV SCH (12:00)
[2017-02-03] MEDS ORDERED: ROCEPHIN VIAL 1 GM 1 GM in NS 50 ML IV + SPIKE MINIBAG* 50 ML IV ONE (13:04)
--- NOTE | 2017-02-03 13:39 | RAD ---
IO Examination: KUB History: Pain, kidney stone Comparison reference: Abdomen CT, 02/03/2017 Findings: Normal intestinal gas pattern. No evidence for mass, ascites or intestinal obstruction. The re is no renal or ureteral stone identified. Calcifications are seen in the region of the prostate. Impression: No renal or ureteral stones identified. Prostate calcifications consistent with calcific prostatitis. Reported By:
[2017-02-03] MEDS ORDERED: ROCEPHIN VIAL 1 GM ONE (13:49)
== END 2017-02-03 14:33 | disposition home or self-care (01) ==
LOC: ER 09:03
DX: N20.0 Calculus of kidney (principal); N13.2 Hydronephrosis with renal and ureteral calculous obstruction; N39.0 Urinary tract infection, site not specified; R10.84 Generalized abdominal pain
CPT/HCPCS: 36415; 74000; 74176; 80053; 81001; 82150; 83690; 85025; 87086; 96365; 96367; 96374; 96375; 99283; 99285; A4222; J0696; J1885; J2175; J2405; J2550

== ENCOUNTER → 2017-03-06 | Outpatient (CLI) | payer OTHER ==
--- NOTE | 2017-03-06 10:16 | RAD ---
Examination: Lumbar spine, AP and lateral views History: Disability, back pain Findings: Normal curvature, segmentation and alignment. There is an anterior osteophyte at the L3-4 i nterspace. There is slight disc narrowing at L4-5 with more severe degenerative change at the lumbosa cral interspace. Pedicles and sacroiliac joints are intact. No fracture or bone destruction. Impression: Degenerative disc disease and spondylosis at levels described, most severe at L5-S1. No a cute features demonstrated. Reported By:
== END ==
LOC: RAD 09:42
PROVIDERS: ATTEND Internal Medicine
DX: Z02.71 Encounter for disability determination (principal)
CPT/HCPCS: 72100

== ENCOUNTER 2019-11-04 06:04 | Observation (INO) ==
[2019-11-04 06:14] VITALS: BMI 25.0
--- NOTE | 2019-11-04 06:25 | DR.GENAD ---
HPI Time Seen Time Seen by Provider: 11/04/19 06:10 PCP Primary Care Physician: ABEL Complaint/Symptoms Chief Complaint Doctors Comments: Dx: left ureteral stone 02 November 2019, was doing well until tonight 5am and started vomiting and having pain Chief Complaint:: STOMACH HURTING AND THROWING UP SINCE 5 AM, CAME TO ER YE STERDAY MORNING FOR THE SAME THING Self Treatment fo Chief Complaint: ZOFRAN Nurses notes reviewed Nurses Notes Review: Yes Source History Provided: Patient Mode of Arrival Mode of Arrival: Ambulatory Timing Onset of Chief Complaint: 11/04/19 Came on: Suddenly Duration Duration: Intermittent How lon Duration: Hours Location Location: left flank Severity Severity: Moderate Modifying Factors Improves:: zofran Associated Signs and Symptoms Associated Signs and Symptoms: flank pain PMH PMH Past Medical History: No Past Medical History: CHF, COPD, Hypertension and Kidney Stones Past Surgical History: Yes Surgical History: Lithotripsy and Other Family History History of Family Medical Conditions: Yes Family Medical History: [facility] Social History Type of Tobacco Use: Cigarettes Do you use any recreational Drugs:: No Infectious screening Have you traveled outside the country in the last 6 months?: No Isolation: Standard ROS Review of Systems Constitutional: No Symptoms Reported Eyes: No Symptoms Reported ENTM: No Symptoms Reported Respiratoy: No Symptoms Reported Cardiovascular: No Symptoms Reported Gastrointestinal/Abdominal: Abdominal Pain, Nausea and Vomiting Genitourinary: No Symptoms Reported Neurological: No Symptoms Reported Musculoskeletal: No Symptoms Reported Integumentary: No Symptoms Reported Hematologic/Lymphatic: No Symptoms Reported Endocrine: No Symptoms Reported Psychiatric: No Symptoms Reported All Other Systems: Reviewed and Negative PE Vital Signs Vitals: Temperature 98.5 F Pulse Rate 129 Respiratory Rate 16 Blood Pressure [Left Arm] 113/78 Blood Pressure 177/92 O2 Sat by Pulse Oximetry 98 General Limitations: No Limitations General Appearance: Alert and In No Apparent Distress Head Head Exam: Normal Inspection, Atraumatic and Normocephalic Eyes Eye exam: Normal Appearance and EOMI ENT ENT Exam: Normal Exam and Normal Oropharynx External Ear Exam: Normal External Inspection Nose Exam: Normal Nose Exam Mouth Exam: Normal Inspection Throat Exam: Normal Inspection Neck Neck Exam: Normal Inspection, Full ROM and Trachea Midline Chest Chest Inspection: Normal Inspection Respiratory Respiratory Exam: Normal Lung Sounds Bilat Respiratory Exam: Bilateral: Clear to Auscultation Cardiovascular Cardiovascular Exam: Tachycardia Abdominal Exam Abdominal Exam: Normal Inspection, Normal Bowel Sounds, Soft and Tenderness (left flank); negative Distention and Guarding Abdominal Tenderness: Moderate Extremities Extremities Exam: Normal Inspection and Full ROM Back Back Exam: Normal Inspection and Full ROM Neurologic Neurological Exam: Alert, Oriented X3, CN II-XII Intact and Normal Gait Psychiatric Psychiatric Exam: Flat Affect Skin Skin Exam: Normal Color COURSE Consultation Called: 07:48 Call Returned: 07:48 Consultation Comments: case discussed with DR. Chacon will accept patient if s ymptoms persist ROR Labs Reviewed Result Diagrams: 11/04/19 06:39 11/04/19 06:39 Laboratory: WBC 5.6 X10^3/uL (3.6-10.0) 11/04/19 06:39 RBC 5.15 X10^6/uL (4.7-6.0) 11/04/19 06:39 Hgb 16.1 g/dL (13.5-18.0) 11/04/19 06:39 Hct 46.5 % (42.0-54.0) 11/04/19 06:39 MCV 90.3 fL (80.0-100.0) 11/04/19 06:39 MCH 31.3 pg (27.0-34.0) 11/04/19 06:39 MCHC 34.6 g/dL (33.0-35.0) 11/04/19 06:39 RDW 13.0 % (11.6-16.5) 11/04/19 06:39 Plt Count 201 X10^3/uL (150.0-450.0) 11/04/19 06:39 MPV 7.4 fL (7.4-11.0) 11/04/19 06:39 Neut % (Auto) 63.6 % (42.0-75.0) 11/04/19 06:39 Lymph % (Auto) 25.3 % (21.0-51.0) 11/04/19 06:39 [place] % (Auto) 8.2 % (0.0-13.0) 11/04/19 06:39 Eos % (Auto) 1.7 % (0.9-2.9) 11/04/19 06:39 Baso % (Auto) 1.2 % (0.2-1.0) H 11/04/19 06:39 Neut # (Auto) 3.6 x10^3/uL (2.2-4.8) 11/04/19 06:39 Lymph # (Auto) 1.4 X10^3/uL (1.3-2.9) 11/04/19 06:39 [place] # (Auto) 0.5 x10^3/uL (0.3-0.8) 11/04/19 06:39 Eos # (Auto) 0.1 x10^3/uL (0.0-0.2) 11/04/19 06:39 Baso # (Auto) 0.1 X10^3/uL (0.0-0.1) 11/04/19 06:39 Absolute Nucleated RBC 0.1 /100WBC 11/04/19 06:39 Sodium 134 mmol/L (136-145) L 11/04/19 06:39 Corrected Sodium 135 mmol/L (136-145) L 11/04/19 06:39 Potassium 3.5 mmol/L (3.5-5.1) 11/04/19 06:39 Chloride 98 mmol/L (98-107) 11/04/19 06:39 Carbon Dioxide 24.3 mmol/L (21-32) 11/04/19 06:39 BUN 16 mg/dL (7-18) 11/04/19 06:39 Creatinine 1.86 mg/dL (0.70-1.30) H 11/04/19 06:39 Est GFR (MDRD) Af Amer 48 (>60) L 11/04/19 06:39 Est GFR (MDRD) Non-Af 40 (>60) L 11/04/19 06:39 Glucose 122 mg/dL (65-99) H 11/04/19 06:39 Calcium 9.8 mg/dL (8.5-10.1) 11/04/19 06:39 Lipase 103 Units/L (73-393) 11/04/19 06:39 XRAY XRAY Interpreted by: Radiologist X-ray Results: CT abdo/pelvis: left yreteral stone moved distally Opioid Opioid Risk Tool Age (Esequiel box if 16-45): No History of Preadolescent Sexual Abuse: No Total: 0 Total Score Risk Category: Low Risk Copyright: Amado HERNANDEZ predicting aberrant behaviors Diagnosis Discharge Problem: Renal calculus, left Instructions Instructions: Kidney Stones Forms: Precautions for COVID19 Patient Portal Social Distancing
[2019-11-04] MEDS ORDERED: ZOFRAN INJ 4 MG VIAL IVP PRN (06:26)
[2019-11-04] MEDS ORDERED: TORADOL 30 MG VIAL IVP ONE (06:29)
[2019-11-04] MEDS ORDERED: NS 1000 ML 1,000 ML ONE ×2 (06:35→10:40)
[2019-11-04] MEDS ORDERED: TORADOL 30 MG VIAL ONE (06:35)
[2019-11-04] MEDS ORDERED: ZOFRAN INJ 4 MG VIAL ONE (06:35)
[2019-11-04 06:49] LABS: BASOPHILS # (AUTO) 0.1 X10^3/uL (0.0-0.1); BASOPHILS % (AUTO) 1.2 % (0.2-1.0); EOSINOPHILS # (AUTO) 0.1 x10^3/uL (0.0-0.2); EOSINOPHILS % (AUTO) 1.7 % (0.9-2.9); HEMATOCRIT 46.5 % (42.0-54.0); HEMOGLOBIN 16.1 g/dL (13.5-18.0); LYMPHOCYTES # (AUTO) 1.4 X10^3/uL (1.3-2.9); LYMPHOCYTES % (AUTO) 25.3 % (21.0-51.0); MEAN CORPUSCULAR HEMOGLOBIN 31.3 pg (27.0-34.0); MEAN CORPUSCULAR HGB CONC 34.6 g/dL (33.0-35.0); MEAN CORPUSCULAR VOLUME 90.3 fL (80.0-100.0); MEAN PLATELET VOLUME 7.4 fL (7.4-11.0); MONOCYTES # (AUTO) 0.5 x10^3/uL (0.3-0.8); MONOCYTES % (AUTO) 8.2 % (0.0-13.0); NEUTROPHILS # (AUTO) 3.6 x10^3/uL (2.2-4.8); NEUTROPHILS % (AUTO) 63.6 % (42.0-75.0); PLATELET COUNT 201 X10^3/uL (150.0-450.0); RED BLOOD COUNT 5.15 X10^6/uL (4.7-6.0); WHITE BLOOD COUNT 5.6 X10^3/uL (3.6-10.0)
[2019-11-04] MEDS ORDERED: NS 1000 ML 1,000 ML IV SCH (07:00)
[2019-11-04 07:01] LABS: CALCIUM 9.8 mg/dL (8.5-10.1); CARBON DIOXIDE 24.3 mmol/L (21-32); CREATININE 1.86 mg/dL (0.70-1.30)
--- NOTE | 2019-11-04 07:12 | CT ---
HISTORYSTOMACH HURTING AND THROWING UP SINCE 5 AM, CAME TO ER YESTERDAY MORNING FOR THE SAME THING. PT HAD SAME EXAM ON 11.02.2019STUDYABDOMEN/PELVIS W/O [id number]/24/2020 CT abdomen and pelvisTECHNIQUEMultiple axial images of the abdomen and pelvis were obtained from the lung bases to the pubic symphysis without IV contrast. Dose reduction techniques including Automated Exposure Control (AEC) and adjustment of mA and kV were utilized.FINDINGSLung bases are grossly clear. The heart is normal in size. The liver, gallbladder, spleen, pancreas and adrenal glands have a benign noncontrast appearance. Punctate right lower pole renal calculus without hydronephrosis on the right. There a few left renal calculi measuring up to 3 mm in the left lower pole. Mild left hydroureteronephrosis with cluster of calculi measuring up to 5 mm at the level of the iliac vessels on image 65 axial. Mild thickening of the perirenal fascia. The urinary bladder appears benign. Prostate is normal in size. No evidence of bowel obstruction. The appendix appears normal. Normal caliber moderately atherosclerotic abdominal aorta. No pathologic adenopathy. No free air, significant free fluid or collection. No acute osseous or body wall abnormalityIMPRESSIONThe previously seen left ureteral calculi have progressed to the level of the iliac vessels and measure 5 mm axial. There is mild left hydroureteronephrosis.Electronically signed by: Tacho Starks (Nov 04, 2019 07:11:21)
[2019-11-04] MEDS ORDERED: PHENERGAN INJ 25 MG IM ONE ×2 (07:18→07:20)
[2019-11-04] MEDS ORDERED: DEMEROL INJ IVP ONE (07:19)
[2019-11-04] MEDS ORDERED: DEMEROL INJ ONE (07:20)
[2019-11-04] MEDS: PROTONIX INJ 40 MG VIAL IVP ONE ×2 (07:30→07:49)
[2019-11-04] MEDS ORDERED: PROTONIX INJ 40 MG VIAL ONE (07:36)
[2019-11-04] MEDS ORDERED: DEMEROL INJ IVP PRN (07:56)
[2019-11-04 08:01] LABS: BILIRUBIN,URINE NEGATIVE (NEGATIVE); BLOOD/HEMOGLOBIN,URINE 5+ (NEGATIVE); GLUCOSE, URINE NEGATIVE (NEGATIVE); KETONES,URINE 1+ (NEGATIVE); LEUKOCYTE ESTERASE ,URINE 1+ (NEGATIVE); NITRITES,URINE NEGATIVE (NEGATIVE); PROTEIN,URINE 2+ (NEGATIVE); UROBILINOGEN,URINE 1+ (NORMAL)
[2019-11-04 08:08] LABS: APPEARANCE,URINE HAZY (CLEAR); COLOR,URINE YELLOW (YELLOW)
[2019-11-04 08:09] LABS: BACTERIA,URINE NEGATIVE /HPF (NEGATIVE); MUCUS,URINE FEW /HPF (NEGATIVE); RBC,URINE 20-30 /HPF (0-3); SQUAMOUS EPITHELIAL CELL,UR NEGATIVE /HPF (NEGATIVE)
[2019-11-04] MEDS: NS 1000 ML 1,000 ML IV SCH ×2 (11:04→19:15)
[2019-11-04] MEDS ORDERED: NORVASC TAB 2.5 MG PO SCH (12:25)
[2019-11-04] MEDS ORDERED: TOPROL XL PO ONE (12:33)
[2019-11-04] MEDS: TOPROL XL PO SCH (12:34)
[2019-11-04] MEDS ORDERED: NORVASC TAB 2.5 MG ONE (12:34)
[2019-11-04] MEDS: NORCO 10/325 TAB PO PRN (12:42)
--- NOTE | 2019-11-04 12:57 | DR.H&P ---
H&P History & Physical for Day of: H&P Date: 11/04/19 Chief Complaint Chief Complaint: Nausea/Vomiting Left flank pain Allergies Allergies Allergy/AdvReac Type Severity Reaction Status Date / Time codeine Allergy Verified 11/02/19 08:42 History of Present Illness History of Present Illness: Pt is a 59 yo m pmhx HTN, COPD, CAD, admitted for urolithiasis on left. He reports ongoing symptoms for the past 2 days and was seen in the ED on 11/01, evaluated and diagnosed with kidney stone, discharged after receiving IVF and medication when he was feeling better. He returned to the ED this morning after reporting worsening nausea/vomiting and sharp flank pain around 5AM. Labs/imaging: Wbc 5.6, Hgb 16.1, Plt 201, Na 134, K 3.5, Cr 1.86, Gluc 122, UA not c/w infection, CTAP:The previously seen left ureteral calculi have progressed to the level of the iliac vessels and measure 5 mm axial. There is mild left hydroureteronephrosis. Will start pt on IVF NS@125ml/h , Flomax 0.4mg, instructed nursing for urine to be strained. Nausea and Pain control with [place], Demerol, and Zofran. Restart home medications. Continue to monitor and follow up labs/imaging in the morning. Past Medical History Past Medical History: CHF, COPD, Hypertension and Kidney Stones Past Surgical History Surgical History: CABG/Valve Surgery and Lithotripsy Family History Family Medical History: [place] and Hypertension Social History Does patient currently use any type of tobacco product: Yes Have you used tobacco products in the last 12 months: Yes Type of Tobacco Use: Cigarettes Does any household member use tobacco: No Alcohol Use: None Drug Use: Marijuana Medications Home Medications: codeine Allergy (Verified 11/02/19 08:42) CONTINUE taking the following medications albuterol sulfate [ProAir HFA] 1 inh INHALATION Q4H 11/04/19 [History] amlodipine 2.5 mg PO DAILY 11/04/19 [History] cilostazol 100 mg PO BID 11/04/19 [History] gabapentin 100 mg PO TID 11/04/19 [History] hydrocodone-acetaminophen [[place]] 1 tab PO BID 11/04/19 [History] lisinopril 5 mg PO DAILY 11/04/19 [History] meloxicam 7.5 mg PO DAILY 11/04/19 [History] potassium chloride 10 meq PO BID 11/04/19 [History] ropinirole 0.5 mg PO HS 11/04/19 [History] tamsulosin [Flomax] 0.4 mg PO DAILY 11/04/19 [History] Labs Result Diagrams: 11/04/19 06:39 08 06:39 Labs: Laboratory WBC 5.6 X10^3/uL (3.6-10.0) 11/04/19 06:39 RBC 5.15 X10^6/uL (4.7-6.0) 11/04/19 06:39 Hgb 16.1 g/dL (13.5-18.0) 11/04/19 06:39 Hct 46.5 % (42.0-54.0) 11/04/19 06:39 MCV 90.3 fL (80.0-100.0) 11/04/19 06:39 MCH 31.3 pg (27.0-34.0) 11/04/19 06:39 MCHC 34.6 g/dL (33.0-35.0) 11/04/19 06:39 RDW 13.0 % (11.6-16.5) 11/04/19 06:39 Plt Count 201 X10^3/uL (150.0-450.0) 11/04/19 06:39 MPV 7.4 fL (7.4-11.0) 11/04/19 06:39 Neut % (Auto) 63.6 % (42.0-75.0) 11/04/19 06:39 Lymph % (Auto) 25.3 % (21.0-51.0) 11/04/19 06:39 [place] % (Auto) 8.2 % (0.0-13.0) 11/04/19 06:39 Eos % (Auto) 1.7 % (0.9-2.9) 11/04/19 06:39 Baso % (Auto) 1.2 % (0.2-1.0) H 11/04/19 06:39 Neut # (Auto) 3.6 x10^3/uL (2.2-4.8) 11/04/19 06:39 Lymph # (Auto) 1.4 X10^3/uL (1.3-2.9) 11/04/19 06:39 [place] # (Auto) 0.5 x10^3/uL (0.3-0.8) 11/04/19 06:39 Eos # (Auto) 0.1 x10^3/uL (0.0-0.2) 11/04/19 06:39 Baso # (Auto) 0.1 X10^3/uL (0.0-0.1) 11/04/19 06:39 Absolute Nucleated RBC 0.1 /100WBC 11/04/19 06:39 Sodium 134 mmol/L (136-145) L 11/04/19 06:39 Corrected Sodium 135 mmol/L (136-145) L 11/04/19 06:39 Potassium 3.5 mmol/L (3.5-5.1) 11/04/19 06:39 Chloride 98 mmol/L (98-107) 11/04/19 06:39 Carbon Dioxide 24.3 mmol/L (21-32) 11/04/19 06:39 BUN 16 mg/dL (7-18) 11/04/19 06:39 Creatinine 1.86 mg/dL (0.70-1.30) H 11/04/19 06:39 Est GFR (MDRD) Af Amer 48 (>60) L 11/04/19 06:39 Est GFR (MDRD) Non-Af 40 (>60) L 11/04/19 06:39 Glucose 122 mg/dL (65-99) H 11/04/19 06:39 Calcium 9.8 mg/dL (8.5-10.1) 11/04/19 06:39 Lipase 103 Units/L (73-393) 11/04/19 06:39 Specimen Type Clean catch urine 11/04/19 07:47 Urine Color Yellow (YELLOW) 11/04/19 07:47 Urine Appearance Hazy (CLEAR) 11/04/19 07:47 Urine pH 6.0 (5.0 - 8.0) 11/04/19 07:47 Ur Specific [place] 1.015 (1.000-1.030) 11/04/19 07:47 Urine Protein 2+ (NEGATIVE) 11/04/19 07:47 Urine Glucose (UA) Negative (NEGATIVE) 11/04/19 07:47 Urine Ketones 1+ (NEGATIVE) 11/04/19 07:47 Urine Occult Blood 5+ (NEGATIVE) 11/04/19 07:47 Urine Nitrite Negative (NEGATIVE) 11/04/19 07:47 Urine Bilirubin Negative (NEGATIVE) 11/04/19 07:47 Urine Urobilinogen 1+ (NORMAL) 11/04/19 07:47 Ur Leukocyte Esterase 1+ (NEGATIVE) 11/04/19 07:47 Urine RBC 20-30 /HPF (0-3) A 11/04/19 07:47 Urine WBC 0-2 /HPF (0-5) 11/04/19 07:47 Ur Squamous Epith Cells Negative /HPF (NEGATIVE) 11/04/19 07:47 Urine Bacteria Negative /HPF (NEGATIVE) 11/04/19 07:47 Urine Mucus Few /HPF (NEGATIVE) 11/04/19 07:47 Ur Culture Indicated? No/not indicated 11/04/19 07:47 SARS-CoV-2 (PCR) Negative (NEGATIVE) 11/04/19 08:22 Review of Systems Constitutional: denies Fever and Chills Eyes: No Symptoms Reported ENT: No Symptoms Reported Respiratory: No Symptoms Reported Cardiovascular: No Symptoms Reported Gastrointestinal: Nausea, Vomiting and Abdominal Pain Genitourinary: Other Musculoskeletal: No Symptoms Reported Skin: No Symptoms Reported Neurological: No Symptoms Reported Physical Exam Vital Signs: Temperature 98.7 F Pulse Rate [Left Brachial] 87 Pulse Rate 129 Respiratory Rate 20 Blood Pressure [Left Arm] 198/110 Blood Pressure 177/92 O2 Sat by Pulse Oximetry 97 Oriented: Normal Eyes: Normal Ear: Normal Nose: Normal Respiratory: Clear Throughout Cardiovascular: Normal : Normal Auscultation: Bowel Sounds: Normal Palpation: Normal Tenderness: LLQ, Periumbilical and Moderate Skin: Normal Musculoskeletal: Normal Psychiatric: Normal Mood Description: Calm Speech Pattern: Clear and Appropriate Assessment/Plan (1) Left ureteral stone: Status: Acute Plan: IVF, flomax, pain control, (2) Acute renal failure: Status: Acute Plan: IVF, continue to trend Cr Hold nephrotoxic drugs (3) Hydronephrosis of left kidney: Status: Acute (4) Essential hypertension: Status: Acute Plan: Resume home medications. Review H&P Reviewed: Yes Patient was examined?: Yes
[2019-11-04] MEDS ORDERED: FLOMAX ONE (19:47)
[2019-11-04] MEDS ORDERED: FLOMAX PO SCH (21:00)
[2019-11-05] MEDS: NS 1000 ML 1,000 ML IV SCH ×3 (00:46→09:56)
[2019-11-05 06:30] LABS: BASOPHILS % (AUTO) 0.3 % (0.2-1.0); EOSINOPHILS # (AUTO) 0.1 x10^3/uL (0.0-0.2); EOSINOPHILS % (AUTO) 1.5 % (0.9-2.9); HEMATOCRIT 40.6 % (42.0-54.0); HEMOGLOBIN 13.7 g/dL (13.5-18.0); LYMPHOCYTES # (AUTO) 0.9 X10^3/uL (1.3-2.9); LYMPHOCYTES % (AUTO) 24.6 % (21.0-51.0); MEAN CORPUSCULAR HEMOGLOBIN 30.8 pg (27.0-34.0); MEAN CORPUSCULAR HGB CONC 33.8 g/dL (33.0-35.0); MEAN CORPUSCULAR VOLUME 91.2 fL (80.0-100.0); MEAN PLATELET VOLUME 7.7 fL (7.4-11.0); MONOCYTES # (AUTO) 0.3 x10^3/uL (0.3-0.8); MONOCYTES % (AUTO) 8.8 % (0.0-13.0); NEUTROPHILS # (AUTO) 2.4 x10^3/uL (2.2-4.8); NEUTROPHILS % (AUTO) 64.8 % (42.0-75.0); PLATELET COUNT 149 X10^3/uL (150.0-450.0); RED BLOOD COUNT 4.46 X10^6/uL (4.7-6.0); RED CELL DISTRIBUTION WIDTH 13.1 % (11.6-16.5); WHITE BLOOD COUNT 3.8 X10^3/uL (3.6-10.0)
[2019-11-05 06:35] LABS: ALANINE AMINOTRANSFERASE 21 Units/L (12-78); ALBUMIN 2.8 g/dL (3.4-5.0); ALKALINE PHOSPHATASE 79 Units/L (46-116); ASPARTATE AMINO TRANSFERASE 19 Units/L (15-37); BLOOD UREA NITROGEN 10 mg/dL (7-18); CALCIUM 8.5 mg/dL (8.5-10.1); CHLORIDE 108 mmol/L (98-107); COR CA(FOR HYPOALB) 9.5 mg/dL (8.5-10.1); CREATININE 1.11 mg/dL (0.70-1.30); SODIUM 140 mmol/L (136-145); TOTAL PROTEIN 5.6 g/dL (6.4-8.2); eGFR NON BLACK RACES > 60 (>60)
--- NOTE | 2019-11-05 08:29 | W.DIS.FURT ---
Summary of Discharge Discharge Summary of Date Date of Exam: 11/05/19 Admission Date Date of Admission: 11/04/19 Admission Diagnosis Hospital Course: Pt is a 59 yo m pmhx HTN, COPD, CAD, admitted for urolithiasis on left and acute renal failure after having flank pain and persistent nausea and vomiting. CTAP:The previously seen left ureteral calculi have progressed to the level of the iliac vessels and measure 5 mm axial. There is mild left hydroureteronephrosis. His hospital course included IVF, flomax, zofran, and pain management. Urine was strained without stone. However, on day of discharge his renal function improved back to wnl and patient's symptoms had subsided significantly, not complaining of nausea or pain. Labs/imaging: Wbc 3.8, Hgb 13.7, Plt 149, Na 140, K 4.1, Cr 1.86>1.11, Gluc 92. He was discharged in stable condition with instructions to continue drinking lots of fluids and to take prescribed flomax. Instructed to follow up w/ pcp at already scheduled appointment. Vital Signs: Vital Signs (72 hours) 11/02/19 10:11 11/04/19 06:07 11/04/19 06:44 Temperature 98.5 F Pulse Rate 129 H Pulse Rate [Left Brachial] Respiratory Rate 24 18 Blood Pressure 119/66 177/92 Blood Pressure [Left Arm] O2 Sat by Pulse Oximetry 98 11/04/19 07:14 11/04/19 07:32 11/04/19 08:02 Temperature Pulse Rate Pulse Rate [Left Brachial] Respiratory Rate 16 16 16 Blood Pressure Blood Pressure [Left Arm] O2 Sat by Pulse Oximetry 11/04/19 11:20 11/04/19 11:36 11/04/19 12:10 Temperature 98.7 F Pulse Rate Pulse Rate [Left Brachial] 103 H 87 Respiratory Rate 20 20 Blood Pressure Blood Pressure [Left Arm] 176/105 170/110 198/110 O2 Sat by Pulse Oximetry 99 97 11/04/19 12:42 11/04/19 13:42 11/04/19 16:00 Temperature 98.6 F Pulse Rate Pulse Rate [Left Brachial] 77 Respiratory Rate 20 20 16 Blood Pressure Blood Pressure [Left Arm] 102/61 O2 Sat by Pulse Oximetry 96 11/04/19 20:00 11/04/19 23:49 11/05/19 04:00 Temperature 98.1 F 98.6 F 97.8 F Pulse Rate Pulse Rate [Left Brachial] 70 83 68 Respiratory Rate 18 21 20 Blood Pressure Blood Pressure [Left Arm] 100/57 147/91 118/70 O2 Sat by Pulse Oximetry 95 96 96 Labs: Laboratory Last Values WBC 3.8 X10^3/uL (3.6-10.0) 11/05/19 06:04 RBC 4.46 X10^6/uL (4.7-6.0) L 11/05/19 06:04 Hgb 13.7 g/dL (13.5-18.0) D 11/05/19 06:04 Hct 40.6 % (42.0-54.0) L 11/05/19 06:04 MCV 91.2 fL (80.0-100.0) 11/05/19 06:04 MCH 30.8 pg (27.0-34.0) 11/05/19 06:04 MCHC 33.8 g/dL (33.0-35.0) 11/05/19 06:04 RDW 13.1 % (11.6-16.5) 11/05/19 06:04 Plt Count 149 X10^3/uL (150.0-450.0) L 11/05/19 06:04 MPV 7.7 fL (7.4-11.0) 11/05/19 06:04 Neut % (Auto) 64.8 % (42.0-75.0) 11/05/19 06:04 Lymph % (Auto) 24.6 % (21.0-51.0) 11/05/19 06:04 [place] % (Auto) 8.8 % (0.0-13.0) 11/05/19 06:04 Eos % (Auto) 1.5 % (0.9-2.9) 11/05/19 06:04 Baso % (Auto) 0.3 % (0.2-1.0) 11/05/19 06:04 Neut # (Auto) 2.4 x10^3/uL (2.2-4.8) 11/05/19 06:04 Lymph # (Auto) 0.9 X10^3/uL (1.3-2.9) L 11/05/19 06:04 [place] # (Auto) 0.3 x10^3/uL (0.3-0.8) 11/05/19 06:04 Eos # (Auto) 0.1 x10^3/uL (0.0-0.2) 11/05/19 06:04 Baso # (Auto) 0.0 X10^3/uL (0.0-0.1) 11/05/19 06:04 Absolute Nucleated RBC 0.0 /100WBC 11/05/19 06:04 Sodium 140 mmol/L (136-145) 11/05/19 06:04 Corrected Sodium TNP 11/05/19 06:04 Potassium 4.1 mmol/L (3.5-5.1) 11/05/19 06:04 Chloride 108 mmol/L (98-107) H 11/05/19 06:04 Carbon Dioxide 28.0 mmol/L (21-32) 11/05/19 06:04 BUN 10 mg/dL (7-18) 11/05/19 06:04 Creatinine 1.11 mg/dL (0.70-1.30) 11/05/19 06:04 Est GFR (MDRD) Af Amer > 60 (>60) 11/05/19 06:04 Est GFR (MDRD) Non-Af > 60 (>60) 11/05/19 06:04 Glucose 92 mg/dL (65-99) 11/05/19 06:04 Calcium 8.5 mg/dL (8.5-10.1) 11/05/19 06:04 Corrected Calcium 9.5 mg/dL (8.5-10.1) 11/05/19 06:04 Total Bilirubin 0.70 mg/dL (0.2-1.0) 11/05/19 06:04 AST 19 Units/L (15-37) 11/05/19 06:04 ALT 21 Units/L (12-78) 11/05/19 06:04 Alkaline Phosphatase 79 Units/L (46-116) 11/05/19 06:04 Total Protein 5.6 g/dL (6.4-8.2) L 11/05/19 06:04 Albumin 2.8 g/dL (3.4-5.0) L 11/05/19 06:04 Globulin 2.8 g/dL (2.5-4.5) 11/05/19 06:04 Albumin/Globulin Ratio 1.0 Ratio (1.1-2.1) L 11/05/19 06:04 Lipase 103 Units/L (73-393) 11/04/19 06:39 Specimen Type Clean catch urine 11/04/19 07:47 Urine Color Yellow (YELLOW) 11/04/19 07:47 Urine Appearance Hazy (CLEAR) 11/04/19 07:47 Urine pH 6.0 (5.0 - 8.0) 11/04/19 07:47 Ur Specific [place] 1.015 (1.000-1.030) 11/04/19 07:47 Urine Protein 2+ (NEGATIVE) 11/04/19 07:47 Urine Glucose (UA) Negative (NEGATIVE) 11/04/19 07:47 Urine Ketones 1+ (NEGATIVE) 11/04/19 07:47 Urine Occult Blood 5+ (NEGATIVE) 11/04/19 07:47 Urine Nitrite Negative (NEGATIVE) 11/04/19 07:47 Urine Bilirubin Negative (NEGATIVE) 11/04/19 07:47 Urine Urobilinogen 1+ (NORMAL) 11/04/19 07:47 Ur Leukocyte Esterase 1+ (NEGATIVE) 11/04/19 07:47 Urine RBC 20-30 /HPF (0-3) A 11/04/19 07:47 Urine WBC 0-2 /HPF (0-5) 11/04/19 07:47 Ur Squamous Epith Cells Negative /HPF (NEGATIVE) 11/04/19 07:47 Urine Bacteria Negative /HPF (NEGATIVE) 11/04/19 07:47 Urine Mucus Few /HPF (NEGATIVE) 11/04/19 07:47 Ur Culture Indicated? No/not indicated 11/04/19 07:47 SARS-CoV-2 (PCR) Negative (NEGATIVE) 11/04/19 08:22 Reason For Visit: LEFT URETERAL STONE,INTRACEABLE VOMITING Discharge Date Discharge Date: 11/05/19 Discharge Diagnosis All Active Problems (Updated 11/04/19 @ 13:05 by Samuel Chacon) Acute renal failure (Acute) Chest pain (Acute) Laceration (Acute) Osteoarthritis (Acute) Abdominal pain (Acute) Essential hypertension (Acute) Renal calculus, left (Acute) Hydronephrosis of left kidney (Acute) UTI (urinary tract infection) (Acute) Kidney stone on left side (Acute) Hydronephrosis due to obstruction of ureter (Acute) Acute right flank pain (Acute) Hematuria (Acute) Cellulitis (Acute) Left against medical advice (Acute) Gastroenteritis (Acute) Left ureteral stone (Acute) Left flank pain (Acute) Plan of Treatment: Continue with present treatment and follow up plan. Pt is to keep follow up appointment as instructed and take medications as ordered. Discharge Medications Discharge Medications: codeine Allergy (Verified 11/02/19 08:42) CONTINUE taking the following medications albuterol sulfate [ProAir HFA] 1 inh INHALATION Q4H 11/04/19 [History] amlodipine 2.5 mg PO DAILY 11/04/19 [History] cilostazol 100 mg PO BID 11/04/19 [History] gabapentin 100 mg PO TID 11/04/19 [History] hydrocodone-acetaminophen [[place]] 1 tab PO BID 11/04/19 [History] lisinopril 5 mg PO DAILY 11/04/19 [History] meloxicam 7.5 mg PO DAILY 11/04/19 [History] potassium chloride 10 meq PO BID 11/04/19 [History] ropinirole 0.5 mg PO HS 11/04/19 [History] tamsulosin [Flomax] 0.4 mg PO DAILY 11/04/19 [History] New Prescriptions tamsulosin 0.4 mg PO QPM 30 Days #30 cap 11/05/19 [Rx] Discharge Disposition Discharge Disposition: Home Discharge Condition: Stable
[2019-11-05] MEDS: NORCO 10/325 TAB PO PRN (08:42)
[2019-11-05] MEDS: TOPROL XL PO SCH (08:43)
[2019-11-05] MEDS ORDERED: NORVASC TAB 5 MG PO SCH (09:00)
[2019-11-05 10:00] VITALS: BP 135/77
== END 2019-11-05 09:50 | disposition home or self-care (01) ==
LOC: MED/SURG 06:05 → ER 06:05 → MED/SURG 11:01
PROVIDERS: ADMIT Family Medicine; ATTEND Family Medicine
DX: R11.2 Nausea with vomiting, unspecified; N13.2 Hydronephrosis with renal and ureteral calculous obstruction; J44.9 Chronic obstructive pulmonary disease, unspecified; I25.10 Atherosclerotic heart disease of native coronary artery without angina pectoris; Z20.828 Contact with and (suspected) exposure to other viral communicable diseases; Z87.442 Personal history of urinary calculi; R10.84 Generalized abdominal pain; N17.8 Other acute kidney failure